=== PATIENT | male | born 1980 | race Caucasian/White ===

== ENCOUNTER 2017-02-26 20:38 | Emergency (ER) | payer MEDICAID, OTHER ==
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
[2017-02-26 21:30] LABS: RED CELL DISTRIBUTION WIDTH 14.9 % (11.5-20.0)
[2017-02-26 21:34] LABS: % BASOPHILS 1.9 % (0.0-2.0); % EOSINOPHILS 1.3 % (0.0-5.0); % MONOCYTES 6.1 % (2.0-10.0); % NEUTROPHILS 58.7 % (40.0-80.0); HEMOGLOBIN 13.8 gm/dL (13.2-17.3); MEAN CORPUSCULAR HEMOGLOBIN 31.3 pg (26.0-30.0); MEAN CORPUSCULAR HGB CONC 32.9 pg (28.0-36.0); MEAN PLATELET VOLUME 7.5 fl; NEUTROPHILE ABSOLUTE 4.3 Th/cmm (1.8-8.0); PLATELET COUNT 573 Th/cmm (150-400); RED BLOOD COUNT 4.41 Mil/cmm (4.30-5.70)
[2017-02-26 21:47] LABS: ALB/GLOB RATIO 1.3 (1.0-1.8); ALKALINE PHOSPHATASE 82 U/L (34-104); ANION GAP 10.3 (7.0-16.0); BILIRUBIN,TOTAL 0.3 mg/dL (0.3-1.0); BUN - UREA NITROGEN 12 mg/dL (7-25); CALCIUM SERUM 8.7 mg/dL (8.6-10.3); CARBON DIOXIDE 20.9 mEq/L (21.0-31.0); CHLORIDE 106 mEq/L (98-107); CREATININE - SERUM 0.5 mg/dL (0.7-1.3); GLUCOSE 106 mg/dL (70-105); POTASSIUM SERUM 3.2 mEq/L (3.5-5.1); SGOT 19 U/L (13-39); SGPT/ALT 20 U/L (7-52); SODIUM SERUM 134 mEq/L (136-145)
[2017-02-26] MEDS ORDERED: Potassium Chloride 20 mEq ER Tab PO ONE ×2 (22:07→22:51)
[2017-02-26 22:39] LABS: WHITE BLOOD COUNT 7.4 Th/cmm (4.8-10.8)
[2017-02-26 23:20] LABS: URINE BILIRUBIN SMALL (NEGATIVE); URINE BLOOD MODERATE (NEGATIVE); URINE GLUCOSE (UA) NEGATIVE (NEGATIVE); URINE KETONE NEGATIVE (NEGATIVE); URINE PROTEIN 100 mg/dL (NEGATIVE)
[2017-02-26 23:35] LABS: MEAN CELL VOLUME 95.2 fl (80-99)
[2017-02-26 23:50] LABS: AMPHETAMINE URINE POSITIVE (NEGATIVE); BARBITURATES URINE NEGATIVE (NEGATIVE)
[2017-02-26 23:51] LABS: METHADONE URINE NEGATIVE (NEGATIVE)
[2017-02-26 23:58] LABS: URINE COLOR YELLOW
[2017-02-27 00:03] LABS: URINE BACTERIA MODERATE /hpf (NONE SEEN); URINE EPITHELIAL CELLS NONE SEEN /lpf (FEW); URINE WBC >100 /hpf (0-5)
--- NOTE | 2017-02-27 06:40 | General Progress Note ---
Subjective - Review of Systems Service Date: 02/27/17 Events since last encounter: intermin note 6;35 am. 02/27/17 pt stable overnt. he refused discharge saying he feels he is suicidal if he is going to be dcd. He made no mention of any psych instability before he was told he would be dcd and it seems more like manipulation than a honest statement. However I have asked staff to have psych services provide a consult so as to determine if pt does warrant psychiatric placement...we are awaiting this consult which was not available until am shift. VSS. PE unchanged. alert/nontoxic plan is sign case over to Dr Jorge at 7am change of shift for any further needs. Objective - Results Result Diagrams: 02/26/17 21:22 02/26/17 21:22 Recent Labs: Laboratory Last Values WBC 7.4 Th/cmm (4.8-10.8) D 02/26/17 21:22 RBC 4.41 Mil/cmm (4.30-5.70) 02/26/17 21:22 Hgb 13.8 gm/dL (13.2-17.3) 02/26/17 21:22 Hct 42.0 % (39.0-49.0) D 02/26/17 21:22 MCV 95.2 fl (80-99) 02/26/17 21:22 MCH 31.3 pg (26.0-30.0) H 02/26/17 21:22 MCHC Differential 32.9 pg (28.0-36.0) 02/26/17 21:22 RDW 14.9 % (11.5-20.0) 02/26/17 21:22 Plt Count 573 Th/cmm (150-400) H 02/26/17 21:22 MPV 7.5 fl 02/26/17 21:22 Neutrophils % 58.7 % (40.0-80.0) 02/26/17 21:22 Lymphocytes % 32.0 % (20.0-50.0) 02/26/17 21:22 Monocytes % 6.1 % (2.0-10.0) 02/26/17 21:22 Eosinophils % 1.3 % (0.0-5.0) 02/26/17 21:22 Basophils % 1.9 % (0.0-2.0) 02/26/17 21:22 Sodium 134 mEq/L (136-145) L 02/26/17 21:22 Potassium 3.2 mEq/L (3.5-5.1) L 02/26/17 21:22 Chloride 106 mEq/L (98-107) 02/26/17 21:22 Carbon Dioxide 20.9 mEq/L (21.0-31.0) L 02/26/17 21:22 Anion Gap 10.3 (7.0-16.0) 02/26/17 21:22 BUN 12 mg/dL (7-25) 02/26/17 21:22 Creatinine 0.5 mg/dL (0.7-1.3) L 02/26/17 21:22 Est GFR ( Amer) > 60.0 ml/min (>90) 02/26/17 21:22 Est GFR (Non-Af Amer) > 60.0 ml/min 02/26/17 21:22 BUN/Creatinine Ratio 24.0 02/26/17 21:22 Glucose 106 mg/dL (70-105) H 02/26/17 21:22 Calcium 8.7 mg/dL (8.6-10.3) 02/26/17 21:22 Total Bilirubin 0.3 mg/dL (0.3-1.0) 02/26/17 21:22 AST 19 U/L (13-39) 02/26/17 21:22 ALT 20 U/L (7-52) 02/26/17 21:22 Alkaline Phosphatase 82 U/L (34-104) 02/26/17 21:22 Total Protein 6.7 gm/dL (6.0-8.3) 02/26/17 21:22 Albumin 3.8 gm/dL (4.2-5.5) L 02/26/17 21:22 Globulin 2.9 gm/dL 02/26/17 21:22 Albumin/Globulin Ratio 1.3 (1.0-1.8) 02/26/17 21:22 Urine Source CATH 02/26/17 23:05 Urine Color YELLOW 02/26/17 23:05 Urine Clarity TURBID (CLEAR) 02/26/17 23:05 Urine pH 6.0 (4.6 - 8.0) 02/26/17 23:05 Ur Specific Lannon >= 1.030 (1.005-1.030) 02/26/17 23:05 Urine Protein 100 mg/dL (NEGATIVE) H 02/26/17 23:05 Urine Glucose (UA) NEGATIVE mg/dL (NEGATIVE) 02/26/17 23:05 Urine Ketones NEGATIVE mg/dL (NEGATIVE) 02/26/17 23:05 Urine Blood MODERATE (NEGATIVE) H 02/26/17 23:05 Urine Nitrate NEGATIVE (NEGATIVE) 02/26/17 23:05 Urine Bilirubin SMALL (NEGATIVE) H 02/26/17 23:05 Urine Urobilinogen 4.0 E.U./dL (0.2 - 1.0) H 02/26/17 23:05 Ur Leukocyte Esterase MODERATE (NEGATIVE) H 02/26/17 23:05 Urine RBC 5-10 /hpf (0-5) H 02/26/17 23:05 Urine WBC >100 /hpf (0-5) H 02/26/17 23:05 Ur Epithelial Cells NONE SEEN /lpf (FEW) 02/26/17 23:05 Urine Bacteria MODERATE /hpf (NONE SEEN) 02/26/17 23:05 Urine Opiates Screen POSITIVE (NEGATIVE) H 02/26/17 23:05 Urine Methadone Screen NEGATIVE (NEGATIVE) 02/26/17 23:05 Ur Barbiturates Screen NEGATIVE (NEGATIVE) 02/26/17 23:05 Ur Tricyclics Screen NEGATIVE (NEGATIVE) 02/26/17 23:05 Ur Phencyclidine Scrn NEGATIVE (NEGATIVE) 02/26/17 23:05 Amphetamines Screen POSITIVE (NEGATIVE) H 02/26/17 23:05 U Methamphetamines Scrn POSITIVE (NEGATIVE) H 02/26/17 23:05 U Benzodiazepines Scrn NEGATIVE (NEGATIVE) 02/26/17 23:05 U Cocaine Metab Screen NEGATIVE (NEGATIVE) 02/26/17 23:05 U Cannabinoids Screen POSITIVE (NEGATIVE) H 02/26/17 23:05 - Physical Exam Vitals and I&O: Vital Signs Temp 98.0 F 02/27/17 04:37 Pulse 61 02/27/17 05:49 Resp 16 02/27/17 05:49 BP 107/66 02/27/17 05:49 Pulse Ox 96 02/27/17 05:49 Intake & Output 0802/26/17 02/27/17 06:59 18:59 06:59 Weight (lbs) 68.039 kg Active Medications: Current Medications Levofloxacin (Levaquin) 500 mg PO NOW STA Stop: 02/27/17 06:35 Potassium Chloride (Klor-Con) 20 meq PO X1 ONE Stop: 02/26/17 22:08 Last Admin: 02/26/17 22:53 Dose: 20 meq - Procedures Procedures: Procedures Procedure Code Date BELKIS SUBQ TISSUE 20 SQ CM/< 47347 04/20/16 EXCISION OF R UP LEG SUBCU/FASCIA, OPEN APPROACH [id number] 04/20/16 INJECT/INFUSE NEC 99.29 01/20/13 Assessment/Plan - Problem List Patient Problems: All Active Problems Lethargy (Active 01/20/13) R53.83 Renal failure syndrome (Active 01/20/13) N19
--- NOTE | 2017-02-27 08:35 | Consultation ---
DATE OF CONSULTATION: 02/27/2017 AGE: 37. SEX: Male. PHYSICIAN: ER physician. CHIEF COMPLAINT: Depression. HISTORY OF PRESENT ILLNESS: The patient was brought into the hospital for change of the catheter. The patient indicates to the staff that he has been depressed. Chart reviewed and the patient interviewed and discussed condition with the staff. The patient is depressed because he has been homeless and has no place to live. He denies any current psychiatric treatment. The patient also said that he was depressed on the past, but he currently denies any homicidal or suicidal ideations. Also, denies any intention to harm himself or others. PAST PSYCHIATRIC HISTORY: The patient said that he has history of depression, but he has not been in treatment lately. He is not currently not taking any antidepressant medications. PAST MEDICAL HISTORY: The patient has a Cespedes catheter. SOCIAL HISTORY: The patient is homeless. He denies alcohol or drug use, but urine drug screen is positive for marijuana. He denies legal issues: The patient said that he has no place to live. MENTAL STATUS EXAM: The patient appears slightly older than his stated age. Anxious. Mood not depressed nor elated. Cooperative. Thought processes mainly goal directed. He denies auditory or visual hallucinations or delusions. He denies any thoughts of suicide or homicide. The patient is alert and oriented to time, place, person, and situation. Intact immediate, recent and remote memories. Fair insight and judgment. ASSESSMENT: PRIMARY DIAGNOSIS: Mood disorder, unspecified. TREATMENT PLAN: The patient needs placement. We will the case, social work msw to try to find a nursing home for the patient. [facility]. JOB# [id number]
== END 2017-02-27 08:35 | disposition home or self-care (01) ==
LOC: ER 20:38
DX: Z46.6 Encounter for fitting and adjustment of urinary device (principal); N39.0 Urinary tract infection, site not specified; G82.20 Paraplegia, unspecified; F17.200 Nicotine dependence, unspecified, uncomplicated; Z88.8 Allergy status to other drugs, medicaments and biological substances
CPT/HCPCS: 36415-UA; 80053-TC; 80307; 81001-TC; 85025-TC; 87086-90; Z7502